=== PATIENT | female | born 1945 | race Caucasian/White ===

== ENCOUNTER 2021-11-27 08:39 | Inpatient (IN) | payer OTHER, MEDICARE ==
[~2021-11-27] VITALS: Ht 170.2 cm; Wt 73.9 kg
[2021-11-27 11:31] LABS: RED BLOOD COUNT 4.54 M/UL (4.00-5.10); WHITE BLOOD COUNT 10.5 K/UL (4.5-11.0)
[2021-11-27 11:50] LABS: BUN/CREATININE RATIO 19 (0-10)
[2021-11-27] MEDS ORDERED: LORAZEPAM0.5 MG PO (16:42)
[2021-11-27] MEDS ORDERED: ZOLOFT100 MG PO (16:42)
[2021-11-27] MEDS ORDERED: TRELEGY ELLIPT1 EACH INH (16:42)
[2021-11-27] MEDS ORDERED: PROAIR DIGIHAL90 MCG INH (16:43)
[2021-11-27] MEDS ORDERED: MECLIZINE HCL12.5 MG PO (16:43)
[2021-11-27] MEDS ORDERED: LATANOPROST 0.7.5 ML EYEBOTH (16:44)
[2021-11-27] MEDS ORDERED: LEVOTHYROXINE50 MCG PO (16:44)
[2021-11-27] MEDS ORDERED: PRAVASTATIN SOD80 MG PO (16:45)
[2021-11-27] MEDS ORDERED: WARFARIN SODIUM4 MG PO (16:45)
[2021-11-28 03:24] LABS: HEMOGLOBIN 13.4 gm/dl (12.3-15.3); RED BLOOD COUNT 4.4 M/UL (4.00-5.10); WHITE BLOOD COUNT 9.7 K/UL (4.5-11.0)
[2021-11-29] MEDS ORDERED: NEBULIZER UNIT NEB (16:43)
[2021-11-29] MEDS ORDERED: IPRATROPIU0.2 MG/1 M NEB (16:43)
--- NOTE | 2021-11-30 11:46 | NUR ---
PTS RA O2 SAT 88% UPON STANDING
== END 2021-11-30 15:36 | disposition home or self-care (01) | DRG 189 ==
LOC: ER1 08:39 → CDU 14:02 → MED SURG 4 14:02
PROVIDERS: Emergency Medicine; ADMIT Internal Medicine
PROC: B24BZZ4 Ultrasonography of Heart with Aorta, Transesophageal (ICD-10-PCS; principal; 2021-11-30)
DX: J96.22 Acute and chronic respiratory failure with hypercapnia (principal); J44.1 Chronic obstructive pulmonary disease with (acute) exacerbation; D68.9 Coagulation defect, unspecified; J96.21 Acute and chronic respiratory failure with hypoxia; F17.210 Nicotine dependence, cigarettes, uncomplicated; Z20.822 Contact with and (suspected) exposure to COVID-19; I49.5 Sick sinus syndrome; Z95.810 Presence of automatic (implantable) cardiac defibrillator; Z99.81 Dependence on supplemental oxygen; Z79.899 Other long term (current) drug therapy
CPT/HCPCS: ECHO; 0240U; 36415; 36600; 71045; 80048; 82550; 82553; 82803; 82962; 83735; 83880; 84100; 84484; 85025; 85027; 85610; 85730; 93005; 93306; 94640; 94664; 94760; 96374; 96375; 97161; 99285; J0456; J0696; J1650; J2920; J2930; J7030

== ENCOUNTER → 2022-04-05 | Outpatient (CLI) | payer MEDICARE ==
[~2022-04-05] MED LIST: IPRATROPIU0.2 MG/1 M NEB; LATANOPROST 0.7.5 ML EYEBOTH; LEVOTHYROXINE50 MCG PO; LORAZEPAM0.5 MG PO; MECLIZINE HCL12.5 MG PO; NEBULIZER UNIT NEB; PRAVASTATIN SOD80 MG PO; PROAIR DIGIHAL90 MCG INH; TRELEGY ELLIPT1 EACH INH; WARFARIN SODIUM4 MG PO; ZOLOFT100 MG PO
== END ==
LOC: HEART 5 13:57
DX: J44.9 Chronic obstructive pulmonary disease, unspecified (principal); R94.2 Abnormal results of pulmonary function studies
CPT/HCPCS: 94060; 94729

== ENCOUNTER → 2022-05-24 | Outpatient (CLI) | payer MEDICARE | LOC: KOH-I 16:26 | DX: J84.9 Interstitial pulmonary disease, unspecified (principal) | CPT/HCPCS: 71250 ==